=== PATIENT | female | born 1940 | race Native Hawaiian/Other Pacific Islander ===

== ENCOUNTER 2018-03-18 10:21 | Emergency (ER) | payer OTHER ==
[~2018-03-18] VITALS: Ht 154.9 cm; Wt 60.8 kg
[~2018-03-18 10:21] MED LIST: CITA20TA2 PO; GABA300C2 PO; JANUMET1 TAB PO; LORTAB1 TAB PO; METO100T37 PO; OMEPRAZOLE40 MG PO; OSCAL 500/1 TAB PO; PROBIOTI1 PO; SIMV20TA2 PO
[2018-03-18 10:30] VITALS: BP 161/79; TEMP 97.3
== END 2018-03-18 11:15 | disposition home or self-care (01) ==
LOC: ED 10:21
DX: K08.89 Other specified disorders of teeth and supporting structures (principal); K04.7 Periapical abscess without sinus
CPT/HCPCS: 96372; 99282; J1885

== ENCOUNTER 2018-08-19 10:14 | Emergency (ER) | payer OTHER ==
[~2018-08-19] VITALS: Ht 154.9 cm; Wt 63.5 kg
[2018-08-19 11:06] LABS: PLATELET COUNT 247 K/uL (152-353)
[2018-08-19 11:16] LABS: SODIUM 138 mmol/L (136-145)
[2018-08-19 13:50] VITALS: BP 160/74; TEMP 97.7
== END 2018-08-19 13:51 | disposition home or self-care (01) ==
LOC: ED 10:14
PROVIDERS: Allergy & Immunology
DX: R51 Headache (principal)
CPT/HCPCS: 36415; 80053; 84484; 85027; 93005; 99283

== ENCOUNTER 2018-08-22 10:28 | Emergency (ER) | payer OTHER ==
[~2018-08-22] VITALS: Ht 154.9 cm; Wt 63.5 kg
[2018-08-22 10:58] LABS: PLATELET COUNT 294 K/uL (152-353)
[2018-08-22 11:06] LABS: POTASSIUM 3.7 mmol/L (3.6-5.2)
[2018-08-22 11:52] VITALS: BP 150/88; TEMP 98
== END 2018-08-22 11:53 | disposition home or self-care (01) ==
LOC: ED 10:28
DX: F03.90 Unspecified dementia, unspecified severity, without behavioral disturbance, psychotic disturbance, mood disturbance, and anxiety (principal)
CPT/HCPCS: 36415; 80053; 81000; 85027; 99283